=== PATIENT | male | born 1955 | race Caucasian/White ===

== ENCOUNTER → 2016-10-31 | Outpatient (CLI) | payer OTHER ==
[~2016-10-31] MED LIST: ASPIRIN 81M81 MG/TA2 PO; BENADRYL25 M2; CELEXA40 MG PO; GLUCOPHAGE1000 MG PO; LIPITOR20 MG PO; NASONEX SPRAY17 GM NS
== END ==
LOC: COL.RAD 07:52
DX: R10.11 Right upper quadrant pain (principal)

== ENCOUNTER → 2016-11-11 | Outpatient (CLI) | payer OTHER | LOC: COL.RAD 11:36 | DX: R10.11 Right upper quadrant pain (principal) | CPT/HCPCS: A9537 ==

== ENCOUNTER → 2018-12-12 | Outpatient (CLI) | payer OTHER | LOC: DIA.ED 07:29 | DX: E11.9 Type 2 diabetes mellitus without complications (principal); E78.5 Hyperlipidemia, unspecified; I10 Essential (primary) hypertension | CPT/HCPCS: G0108 ==

== ENCOUNTER → 2019-01-02 | Outpatient (CLI) | payer OTHER | LOC: DIA.ED 12:32 | DX: E11.9 Type 2 diabetes mellitus without complications (principal); E78.5 Hyperlipidemia, unspecified; I10 Essential (primary) hypertension | CPT/HCPCS: G0108 ==

== ENCOUNTER → 2020-03-02 | Outpatient (CLI) | payer OTHER | LOC: DIA.ED 03-05 11:15 | DX: E11.9 Type 2 diabetes mellitus without complications (principal); Z79.84 Long term (current) use of oral hypoglycemic drugs; E78.5 Hyperlipidemia, unspecified; I10 Essential (primary) hypertension | CPT/HCPCS: G0108 ==

== ENCOUNTER → 2020-03-23 | Outpatient (CLI) | payer OTHER | LOC: DIA.ED | DX: E11.9 Type 2 diabetes mellitus without complications (principal); Z79.84 Long term (current) use of oral hypoglycemic drugs; E78.5 Hyperlipidemia, unspecified; I10 Essential (primary) hypertension; E66.8 Other obesity | CPT/HCPCS: G0108 ==

== ENCOUNTER → 2020-05-13 | Outpatient (CLI) | payer OTHER | LOC: DIA.ED | DX: E11.9 Type 2 diabetes mellitus without complications (principal); Z79.84 Long term (current) use of oral hypoglycemic drugs; I10 Essential (primary) hypertension; E78.5 Hyperlipidemia, unspecified | CPT/HCPCS: G0108 ==

== ENCOUNTER → 2020-08-12 | Outpatient (CLI) | payer OTHER | LOC: DIA.ED 08:33 | DX: E11.65 Type 2 diabetes mellitus with hyperglycemia (principal); Z79.84 Long term (current) use of oral hypoglycemic drugs; E78.5 Hyperlipidemia, unspecified; I10 Essential (primary) hypertension | CPT/HCPCS: G0108 ==

== ENCOUNTER → 2021-11-01 | Outpatient (CLI) | payer MEDICARE, OTHER | LOC: COL.RAD 12:57 | DX: R22.2 Localized swelling, mass and lump, trunk (principal); Z87.828 Personal history of other (healed) physical injury and trauma ==

== ENCOUNTER 2023-02-08 11:09 | Outpatient (RCR) | payer MEDICARE, OTHER | END 2023-03-02 | disposition home or self-care (01) | LOC: PT.GENESIS | DX: M25.562 Pain in left knee (principal) ==

== ENCOUNTER → 2023-03-31 | Outpatient (CLI) | payer MEDICARE, OTHER | LOC: COL.RAD 07:01 | DX: R29.818 Other symptoms and signs involving the nervous system (principal); R25.1 Tremor, unspecified; R27.8 Other lack of coordination ==

== ENCOUNTER 2023-11-30 09:00 | Outpatient (RCR) | payer MEDICARE, OTHER | END 2023-12-02 | disposition home or self-care (01) | LOC: PT.GENESIS | DX: M51.36 Other intervertebral disc degeneration, lumbar region (principal); M54.2 Cervicalgia ==